=== PATIENT | female | born 1980 | race Two or more races ===

== ENCOUNTER 2017-08-11 05:23 | Emergency (ER) | payer SELFPAY ==
[2017-08-11] MEDS ORDERED: DIPHENHYDRAMINE HCL 50 MG CAPSULE PO ONE (06:10)
[2017-08-11] MEDS ORDERED: PROCHLORPERAZINE MALEATE 10 MG TABLET PO ONE (06:10)
--- NOTE | 2017-08-11 06:20 | ER Document Report ---
ED General - General Chief Complaint: Headache Stated Complaint: HEADACHE Time Seen by Provider: 08/11/17 06:07 Mode of Arrival: Ambulatory Information source: Patient Notes: 37-year-old female presents with complaints of sudden episode of dizziness lightheadedness left earache and headache. 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 IN LAST 30 DAYS: No - HPI Onset: Just prior to arrival Onset/Duration: Sudden Quality of pain: No pain Severity: Mild Pain Level: 1 Associated symptoms: Earache, Other Exacerbated by: Denies Relieved by: Denies Similar symptoms previously: No Recently seen / treated by doctor: No - Related Data Allergies/Adverse Reactions: No Known Allergies Allergy (Verified 07/24/15 19:27) Past Medical History - Social History Smoking Status: Never Smoker Cigarette use (# per day): No Chew tobacco use (# tins/day): No Smoking Education Provided: No Family History: Reviewed & Not Pertinent Pulmonary Medical History: Reports: Hx Asthma Endocrine Medical History: Reports: Hx Diabetes Mellitus Type 2 - Immunizations Hx Diphtheria, Pertussis, Tetanus Vaccination: No Review of Systems - Review of Systems Notes: REVIEW OF SYSTEMS: CONSTITUTIONAL : Denies fever, chills, or sweats. Denies recent illness. EENT: earache CARDIOVASCULAR: Denies chest pain. Denies palpitations or racing or irregular heart beat. Denies ankle edema. RESPIRATORY: Denies cough, cold, or chest congestion. Denies shortness of breath, difficulty breathing, or wheezing. GASTROINTESTINAL: Denies abdominal pain or distention. Denies nausea, vomiting , or diarrhea. Denies blood in vomitus, stools, or per rectum. Denies black, tarry stools. Denies constipation. GENITOURINARY: Denies difficulty urinating, painful urination, burning, frequency, blood in urine, or discharge. FEMALE GENITOURINARY: Denies vaginal bleeding, heavy or abnormal periods, irregular periods. Denies vaginal discharge or odor. MUSCULOSKELETAL: Denies back or neck pain or stiffness. Denies joint pain or swelling. SKIN: Denies rash, lesions or sores. HEMATOLOGIC : Denies easy bruising or bleeding. LYMPHATIC: Denies swollen, enlarged glands. NEUROLOGICAL: dizziness PSYCHIATRIC: Denies anxiety or stress. Denies depression, suicidal ideation, or homicidal ideation. ALL OTHER SYSTEMS REVIEWED AND NEGATIVE. PHYSICAL EXAMINATION: GENERAL: Well-appearing, well-nourished and in no acute distress. HEAD: Atraumatic, normocephalic. EYES: Pupils equal round and reactive to light, extraocular movements intact, conjunctiva are normal. ENT: left tm was pustular , no mastoid tenderness, no external canal swelling NECK: Normal range of motion, supple without lymphadenopathy LUNGS: Breath sounds clear to auscultation bilaterally and equal. No wheezes rales or rhonchi. HEART: Regular rate and rhythm without murmurs ABDOMEN: Soft, nontender, nondistended abdomen. No guarding, no rebound. No masses appreciated. Female : deferred Musculoskeletal: Normal range of motion, no pitting or edema. No cyanosis. NEUROLOGICAL: Cranial nerves grossly intact. Normal speech, normal gait. Normal sensory, motor exams PSYCH: Normal mood, normal affect. SKIN: Warm, Dry, normal turgor, no rashes or lesions noted. Dictation was performed using [employer] voice recognition software Physical Exam - Vital signs Vitals: Temp Pulse Resp BP Pulse Ox 97.8 F 89 18 138/87 H 98 08/11/17 05:37 08/11/17 05:37 08/11/17 05:37 08/11/17 05:37 08/11/17 05:37 Course - Re-evaluation Re-evalutation: 08/11/17 06:55 Patient is in no significant distress, her symptoms are consistent with otitis media that is causing her vertigo, she is given medication for headache antibiotics and Antivert and is otherwise well-appearing CT of the head was negative. Patient is stable will be discharged with very close follow-up After performing a Medical Screening Examination, I estimate there is LOW risk for ACUTE GLAUCOMA, TEMPORAL ARTERITIS, MENINGITIS, INCRANIAL HEMORRHAGE, or ISCHEMIC STROKE thus I consider the discharge disposition reasonable. I have reevaluated this patient multiple times and no significant life threatening changes are noted. The patient and I have discussed the diagnosis and risks, and we agree with discharging home with close follow-up with the understanding that symptoms and presentations can change. We also discussed returning to the Emergency Department immediately if new or worsening symptoms occur. We have discussed the symptoms which are most concerning (e.g., changing or worsening symptoms, new numbness or weakness, vomiting, fever) that necessitate immediate return. - Vital Signs Vital signs: Temp Pulse Resp BP Pulse Ox 97.8 F 89 18 138/87 H 98 08/11/17 05:37 08/11/17 05:37 08/11/17 05:37 08/11/17 05:37 08/11/17 05:37 - Diagnostic Test Radiology reviewed: Image reviewed, Reports reviewed - no acute abnormality Discharge - Discharge Clinical Impression: Vertigo Otitis media Qualifiers: Otitis media type: unspecified Chronicity: acute Qualified Code(s): H66.90 - Otitis media, unspecified, unspecified ear Condition: Stable Disposition: HOME, SELF-CARE Instructions: Vertigo ([facility]) Additional Instructions: Follow up with your physician tomorrow for further care or return to the ED IMMEDIATELY if symptoms worsen or new concerns occur. If you cannot afford to follow up with your primary care physician a list of low cost clinics have been provided at the end of your discharge papers as well. Prescriptions: Amoxicillin 875 mg PO BID #20 tablet Meclizine HCl [Antivert 25 mg Tablet] 25 mg PO TID PRN #9 tablet PRN Reason:
--- NOTE | 2017-08-11 06:40 | RADIOLOGY REPORT (SQ) ---
EXAM DESCRIPTION: CT HEAD WITHOUT COMPLETED DATE/TIME: 08/11/2017 6:29 am REASON FOR STUDY: headache COMPARISON: None. TECHNIQUE: Axial images acquired through the brain without intravenous contrast. Images reviewed wi th bone, brain and subdural windows. Images stored on PACS. All CT scanners at this facility use dose modulation, iterative reconstruction, and/or weight based d osing when appropriate to reduce radiation dose to as low as reasonably achievable (ALARA). [facility]: Dose Right [facility]: CareDose [facility]: Dose Right [facility]: Teradose 4D [facility]: LensAR RADIATION DOSE: mGy. LIMITATIONS: None. FINDINGS: VENTRICLES: Normal size and contour. CEREBRUM: No mass effect. No hemorrhage. No midline shift. Normal samuels/white matter differentiatio n. No evidence for acute territorial infarction. CEREBELLUM: No mass effect. No hemorrhage. No alteration of density. No evidence for acute infarct ion. EXTRAAXIAL SPACES: No fluid collections. ORBITS AND GLOBE: Symmetrical contour of the globes. CALVARIUM: No depressed skull fracture. PARANASAL SINUSES: No air-fluid level. SOFT TISSUES: No hematoma. IMPRESSION: No acute intracranial hemorrhage or acute territorial infarct. EVIDENCE OF ACUTE STROKE: NO. COMMENT: Quality ID # [id number]: Final reports with documentation of one or more dose reduction techniques (e.g., Automated exposure control, adjustment of the mA and/or kV according to patient size, use of iterative reconstruction technique) TECHNICAL DOCUMENTATION: JOB ID: [id number] [employer]- All Rights Reserved
[2017-08-11] MEDS ORDERED: AMOXICILLIN TRIHYDRATE 500 MG CAPSULE PO ONE (06:51)
[2017-08-11] MEDS ORDERED: MECLIZINE HCL 25 MG TABLET PO ONE (06:51)
[2017-08-11 07:44] VITALS: BP 128/79
== END 2017-08-11 07:25 | disposition home or self-care (01) ==
LOC: ER 05:23
DX: H66.90 Otitis media, unspecified, unspecified ear (principal); R51 Headache; R42 Dizziness and giddiness; H92.02 Otalgia, left ear; E11.9 Type 2 diabetes mellitus without complications; J45.909 Unspecified asthma, uncomplicated
CPT/HCPCS: 99284; 70450; S0183